=== PATIENT | male | born 1980 | race Caucasian/White ===

== ENCOUNTER 2017-04-26 15:40 | Emergency (ER) | payer MEDICAID, OTHER ==
[~2017-04-26] VITALS: Ht 175.3 cm; Wt 102.3 kg
[~2017-04-26 15:40] MED LIST: NOCURR
[2017-04-26] MEDS ORDERED: LOSA25TA21 PO (15:57)
[2017-04-26] MEDS ORDERED: BLOOD PRESSURE PO (15:57)
[2017-04-26] MEDS ORDERED: NIAC100T3 PO (15:57)
[2017-04-26] MEDS ORDERED: METF500T4 PO (15:57)
[2017-04-26 16:03] LABS: GLUCOSE,POINT OF CARE 108 MG/DL (70-110)
[2017-04-26] MEDS ORDERED: HYDROCODONE/ACETAMINOPHEN 5-325 MG TABLET PO ONE (19:30)
[2017-04-26 19:49] VITALS: BP 132/87
== END 2017-04-26 20:19 | disposition home or self-care (01) ==
LOC: EMS 15:45
DX: S93.402A Sprain of unspecified ligament of left ankle, initial encounter (principal); E11.9 Type 2 diabetes mellitus without complications; E78.00 Pure hypercholesterolemia, unspecified; I10 Essential (primary) hypertension; W10.8XXA Fall (on) (from) other stairs and steps, initial encounter; Y93.89 Activity, other specified; Y92.89 Other specified places as the place of occurrence of the external cause; Y99.8 Other external cause status
CPT/HCPCS: 29515; 82962; 99284

== ENCOUNTER 2018-06-16 06:42 | Emergency (ER) | payer OTHER ==
[~2018-06-16] VITALS: Ht 175.3 cm; Wt 100.0 kg
[~2018-06-16 06:42] MED LIST changes: +BLOOD PRESSURE PO; +LOSA25TA41 PO; +METF-960 PO; +NIAC100T3 PO; -NOCURR
[2018-06-16 06:59] LABS: GLUCOSE,POINT OF CARE 116 MG/DL (70-110)
[2018-06-16 09:26] VITALS: BP 124/94
== END 2018-06-16 09:28 | disposition home or self-care (01) ==
LOC: EMS 06:45
DX: M70.941 Unspecified soft tissue disorder related to use, overuse and pressure, right hand (principal); E11.9 Type 2 diabetes mellitus without complications; I10 Essential (primary) hypertension; E78.00 Pure hypercholesterolemia, unspecified; Z79.84 Long term (current) use of oral hypoglycemic drugs

== ENCOUNTER 2019-01-02 06:50 | Emergency (ER) | payer OTHER ==
[~2019-01-02] VITALS: Ht 175.3 cm; Wt 93.0 kg
[2019-01-02] MEDS ORDERED: GLIP10TA9 PO (07:02)
[2019-01-02 07:24] LABS: GLUCOSE,POINT OF CARE 142 MG/DL (70-110)
[2019-01-02] MEDS ORDERED: IPRATROPIUM BROMIDE 0.5 MG/2.5 ML NEB SOLUTION NEB ONE (07:45)
[2019-01-02] MEDS ORDERED: ALBUTEROL SULFATE 2.5 MG/0.5 ML NEB SOLUTION NEB ONE (07:45)
[2019-01-02 08:20] VITALS: BP 129/86
[2019-01-02] MEDS ORDERED: ALBUTEROL SULFATE HFA 90 MCG/PUFF 8 GM INHALER IH ONE (08:30)
== END 2019-01-02 08:39 | disposition home or self-care (01) ==
LOC: EMS 06:50
DX: J20.9 Acute bronchitis, unspecified (principal); E11.9 Type 2 diabetes mellitus without complications; E78.00 Pure hypercholesterolemia, unspecified; I10 Essential (primary) hypertension; Z79.84 Long term (current) use of oral hypoglycemic drugs
CPT/HCPCS: 94640; J3535

== ENCOUNTER 2020-07-25 08:05 | Emergency (ER) | payer OTHER ==
[~2020-07-25] VITALS: Ht 175.3 cm; Wt 95.5 kg
[~2020-07-25 08:05] MED LIST changes: -BLOOD PRESSURE PO; +GLIP10TA9 PO; +LOSA25TA21 PO; -LOSA25TA41 PO; -NIAC100T3 PO
[2020-07-25] MEDS ORDERED: ASPI-1450 PO (08:13)
[2020-07-25] MEDS ORDERED: OMEG-50 PO (08:13)
[2020-07-25] MEDS ORDERED: PANT-31 PO (08:13)
[2020-07-25] MEDS ORDERED: ATOR40TA28 PO (08:13)
[2020-07-25] MEDS ORDERED: GLIP5 PO (08:13)
[2020-07-25] MEDS ORDERED: CLOP75TA60 PO (08:13)
[2020-07-25] MEDS ORDERED: BACITRACIN 0.9 GM PACKET OINTMENT TP ONE (09:00)
[2020-07-25] MEDS ORDERED: LIDOCAINE 1% 10 ML VIAL SQ ONE (09:00)
[2020-07-25] MEDS ORDERED: DOXYCYCLINE HYCLATE 100 MG TABLET PO ONE (10:00)
[2020-07-25 10:07] VITALS: BP 132/88
== END 2020-07-25 10:09 | disposition home or self-care (01) ==
LOC: EMS 08:10
DX: S61.214A Laceration without foreign body of right ring finger without damage to nail, initial encounter (principal); E11.9 Type 2 diabetes mellitus without complications; E78.00 Pure hypercholesterolemia, unspecified; I10 Essential (primary) hypertension; I25.2 Old myocardial infarction; Z79.84 Long term (current) use of oral hypoglycemic drugs; Z79.82 Long term (current) use of aspirin; Z79.899 Other long term (current) drug therapy; W25.XXXA Contact with sharp glass, initial encounter; Y93.89 Activity, other specified; Y92.89 Other specified places as the place of occurrence of the external cause; Y99.8 Other external cause status
CPT/HCPCS: 12002; 82962; 99283; J3490